=== PATIENT | male | born 1935 | race Caucasian/White ===

== ENCOUNTER 2019-05-02 18:45 | Emergency (ER) | payer OTHER ==
[~2019-05-02] VITALS: Ht 170.2 cm; Wt 72.6 kg
[2019-05-02] MEDS ORDERED: LOPRESSOR50 MG PO (19:00)
[2019-05-02] MEDS ORDERED: ASPIR 8181 M1 PO (19:01)
[2019-05-02] MEDS ORDERED: ACETAMINOPHEN500 MG PO (19:02)
[2019-05-02 21:57] LABS: URINE BILIRUBIN NEGATIVE (Negative); URINE BLOOD 3+ (Negative); URINE CLARITY SL CLOUDY; URINE COLOR YELLOW; URINE GLUCOSE-RANDOM* NEGATIVE (Negative); URINE KETONES NEGATIVE (Negative); URINE LEUKOCYTES-REFLEX 3+ (Negative); URINE NITRITE-REFLEX NEGATIVE (Negative); URINE PROTEIN (DIPSTICK) 2+ (Negative); URINE UROBILINOGEN 0.2 E.U./dl (0.2-1.0)
[2019-05-02 22:11] LABS: CASTS None Seen /LPF (None Seen); CRYSTALS None Seen /LPF (None Seen); SQUAMOUS 0-3 Few /LPF (0-3); URINE RBC 0-2 Rare /HPF (0-2); URINE WBC-REFLEX >25 Many /HPF (0-5)
[2019-05-02] MEDS ORDERED: KEFLEX500 M1 PO (22:32)
[2019-05-02] MEDS ORDERED: ULTRAM 50MG TAB50 MG PO (22:32)
[2019-05-02 22:40] VITALS: BP 137/82
--- NOTE | 2019-05-03 08:00 | EKG ---
[address] [place] [address] ELECTROCARDIOGRAM REPORT Name: NONA HAM Room #: [facility] Sahra#: [id number] Admission: 05/02/19 Attend Phys: Discharge: 05/02/19 Date of : 33 Report #: [id number] THIS REPORT FOR: //name// [facility] ED Test Date: 2019-05-02 Test Time: 19:00:35 Pat Name: NONA HAM Department: Room: Gender: Family Medicine Physician: JONE : 1935 Requested By: Deanna Crawley Order Number: [id number] MD: Nikita Oneill Measurements Intervals [place] Rate: 132 P: SC: QRS: 3 QRSD: 98 T: 139 QT: 312 QTc: 463 Interpretive Statements Atrial fibrillation Probable LVH with secondary repol abnrm Baseline wander in lead(s) I,II,III,aVR,aVF No previous ECG available for comparison Electronically Signed On 05-03-2019 8:00:12 CULINARY ART TEACHER by Nikita Oneill [email or web address] <ELECTRONICALLY SIGNED> By: Nikita Oneill MD 05/03/19 0800 99 99 Nikita Oneill MD /REYNALDO
== END 2019-05-02 22:54 | disposition home or self-care (01) ==
LOC: ER 18:45
PROVIDERS: Emergency Medicine
DX: S82.65XA Nondisplaced fracture of lateral malleolus of left fibula, initial encounter for closed fracture (principal); N39.0 Urinary tract infection, site not specified; I10 Essential (primary) hypertension; W01.0XXA Fall on same level from slipping, tripping and stumbling without subsequent striking against object, initial encounter; Y93.89 Activity, other specified; Y92.89 Other specified places as the place of occurrence of the external cause; Y99.8 Other external cause status

== ENCOUNTER → 2021-02-11 | Outpatient (CLI) | payer OTHER ==
[~2021-02-11] MED LIST: ACETAMINOPHEN500 MG PO; ASPIR 8181 M1 PO; KEFLEX500 M1 PO; LOPRESSOR50 MG PO; ULTRAM 50MG TAB50 MG PO
== END ==
LOC: SJCVC 13:53
PROVIDERS: ATTEND Internal Medicine Cardiovascular Disease
DX: R94.31 Abnormal electrocardiogram [ECG] [EKG] (principal); I49.3 Ventricular premature depolarization; I48.19 Other persistent atrial fibrillation; I25.10 Atherosclerotic heart disease of native coronary artery without angina pectoris; I73.9 Peripheral vascular disease, unspecified; I13.10 Hypertensive heart and chronic kidney disease without heart failure, with stage 1 through stage 4 chronic kidney disease, or unspecified chronic kidney disease; N18.9 Chronic kidney disease, unspecified; I47.1 Supraventricular tachycardia; E78.5 Hyperlipidemia, unspecified; Z79.82 Long term (current) use of aspirin; Z79.899 Other long term (current) drug therapy; Z72.89 Other problems related to lifestyle; Z87.891 Personal history of nicotine dependence

== ENCOUNTER → 2021-03-03 | Outpatient (CLI) | payer OTHER ==
[~2021-03-03] VITALS: Ht 170.2 cm; Wt 76.4 kg
[~2021-03-03] MED LIST changes: +ALLOPURINOL 30300 M1 PO; +CHOLESTOFF COM1 EACH PO; +FLORASTOR250 MG PO; +FUROSEMIDE 20 M20 MG PO; +LUTEIN-ZEAXANT1 EACH PO; +VITAMIN C500 M2 PO; +VITAMIN D325 MC2 PO; +XARELTO15 MG PO; +[UNRECOGNIZED DRUG - OTHER]; +[UNRECOGNIZED DRUG - OTHER]; +[UNRECOGNIZED DRUG - OTHER]; +[UNRECOGNIZED DRUG - OTHER]; +[UNRECOGNIZED DRUG - REMARK]
[2021-03-03 07:41] VITALS: BP 166/93
[2021-03-03 08:02] LABS: CALCIUM 9.4 mg/dL (8.5-10.1); POTASSIUM 4.2 mmol/L (3.5-5.1)
--- NOTE | 2021-03-03 08:52 | TEE ---
[facility] [place] [address] TRANSESOPHAGEAL ECHOCARDIOGRAM Name: NONA HAM Room #: REG [facility]#: [id number] Admission: 03/03/21 Attend Phys: Gabriel Tejeda MD, Discharge: Date of : 33 Report #: [id number] THIS REPORT FOR: cc: Dory Eric MD, J. Christopher MD Santiago, Patrick MD [facility] ~ APPROVED REPORT Study performed: 03/03/2021 08:05:19 EXAM: Comprehensive 2D, Doppler, and color-flow Echocardiogram Patient Location: Out-Patient Room #: 9 Status: routine BSA: 1.88 HR: 85 bpm BP: 154/92 mmHg Rhythm: Atrial Fibrillation Other Information Study Quality: Good Indications Atrial Fibrillation Echo Enhancing Agent Indication: Rule out Shunt Agent(s) / Amount(s) Used: Agitated Saline 7 cc Procedure After obtaining informed consent, patient underwent transesophageal echo in the [employer]. Type of Sedation : Conscious Sedation Sedation was administered by Nurse. Sedation start time: 809 Case end Time: 824 Sedation was achieved intravenously with: Versed (4mg) Fentanyl (50mcg) Transesophageal probe was inserted and advanced into esophagus without difficulty by Gabriel Tejeda MD. Echo enhancement indication: R/O Septal defect. Echo enhancement agent administered: Agitated Saline The NAYAN was performed without complications. Synchronized Cardioversion acheived with 150 Joules after [address] [facility] [address] [place] [address] TRANSESOPHAGEAL ECHOCARDIOGRAM Name: NONA HAM Room #: REG [facility]#: [id number] Admission: 03/03/21 Attend Phys: Gabriel Tejeda, Discharge: Date of : 33 Report #: [id number] attempt(s). Rhythm following Synchronized Cardioversion: Sinus Bradycardia Throughout the procedure, the blood pressure, pulse oximetry, cardiac rhythm, and rate were monitored. The patient tolerated the procedure without adverse effects. Recovery from conscious sedation was uneventful and vital signs were stable. Left Ventricle The left ventricle is normal size. There is normal LV segmental wall motion. There is normal left ventricular wall thickness. The left ventricular systolic function is normal. The left ventricular ejection fraction is within the normal range. LVEF is >55%. Right Ventricle The right ventricle is normal size. The right ventricular systolic function is normal. Atria Left atrium is dilated. No thrombus is visualized in the left atrium or appendage. Watchman device note in the left atrial appendage Injection of contrast documented no interatrial shunt. Right atrium is dilated. Aortic Valve The aortic valve is normal in structure. No aortic regurgitation is present. There is no aortic valvular stenosis. Mitral Valve The mitral valve is normal in structure. Moderate mitral regurgitation. No evidence of mitral valve stenosis. Tricuspid Valve The tricuspid valve is normal in structure. Mild tricuspid regurgitation. Pulmonic Valve The pulmonary valve is normal in structure. There is no pulmonic valvular regurgitation. Great Vessels The aortic root is normal in size. Pericardium There is no pericardial effusion. [facility] [address] [place] [address] TRANSESOPHAGEAL ECHOCARDIOGRAM Name: NONA HAM [id number] Admission: 03/03/21 Attend Phys: Gabriel Tejeda, Discharge: Date of : 34 Report #: [id number] <Conclusion> Consent was obtained Timeout was performed Normal left ventricle size/wall thickness, EF 55% Normal right ventricle size/function Moderate biatrial enlargement Left radial appendage not visualized, history of a watchman device placement No obvious mass or clot detected Trileaflet aortic valve, normal function Moderate/central mitral valve insufficiency Mild-Moderate tricuspid valve insufficiency Pulmonary valve; no evidence of insufficiency detected No pericardial effusion Normal aortic root size Aorta minimal calcification No evidence of ASD/VSD by color flow/bubble study Patient was successfully cardioverted to sinus bradycardia/150 J biphasic mode Patient tolerated the procedure well In view of the bradycardia post cardioversion in the high 40s bpm, metoprolol was Decreased from 100 mg p.o. twice daily to 50 mg p.o. twice daily Twelve-lead ECG pending <ELECTRONICALLY SIGNED> By: Gabriel Tejeda MD, [facility] 03/03/21 0851 0851 08 Gabriel Tejeda MD, FACC /INF
--- NOTE | 2021-03-04 07:15 | EKG ---
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 : 1935 Requested By: Gabriel Tejeda Order Number: [id number] MD: Gabriel Tejeda Measurements Intervals [place] Rate: 57 P: 68 IN: 209 QRS: 9 QRSD: 119 T: 46 QT: 473 QTc: 461 Interpretive Statements Sinus rhythm Nonspecific intraventricular conduction delay Borderline ST depression, anterolateral leads Compared to ECG 05/02/2019 19:00:35 Intraventricular conduction delay now present ST (T wave) deviation now present Atrial fibrillation no longer present Electronically Signed On 03-04-2021 7:15:32 ANALYTICAL SCIENCES DIRECTOR by Gabriel Tejeda [email or web address] <ELECTRONICALLY SIGNED> By: Gabriel Tejeda MD, [facility] 03/04/21 0715 0850 0850 Gabriel Tejeda MD, [facility] /EPI
== END | disposition home or self-care (01) ==
LOC: CATH 06:35
PROVIDERS: ATTEND Internal Medicine
DX: I48.91 Unspecified atrial fibrillation (principal); I08.1 Rheumatic disorders of both mitral and tricuspid valves; I12.9 Hypertensive chronic kidney disease with stage 1 through stage 4 chronic kidney disease, or unspecified chronic kidney disease; N18.9 Chronic kidney disease, unspecified; E78.5 Hyperlipidemia, unspecified; I73.9 Peripheral vascular disease, unspecified; K21.9 Gastro-esophageal reflux disease without esophagitis; M10.9 Gout, unspecified; N40.0 Benign prostatic hyperplasia without lower urinary tract symptoms; Z98.890 Other specified postprocedural states; Z79.899 Other long term (current) drug therapy; Z95.1 Presence of aortocoronary bypass graft; Z79.01 Long term (current) use of anticoagulants

== ENCOUNTER → 2021-03-12 | Outpatient (CLI) | payer OTHER | LOC: SJCVC 13:02 | PROVIDERS: ATTEND Internal Medicine Cardiovascular Disease | DX: R94.31 Abnormal electrocardiogram [ECG] [EKG] (principal); I44.0 Atrioventricular block, first degree; I48.19 Other persistent atrial fibrillation; I49.5 Sick sinus syndrome; E78.5 Hyperlipidemia, unspecified; I12.9 Hypertensive chronic kidney disease with stage 1 through stage 4 chronic kidney disease, or unspecified chronic kidney disease; N18.9 Chronic kidney disease, unspecified; Z88.8 Allergy status to other drugs, medicaments and biological substances; Z79.82 Long term (current) use of aspirin; Z79.899 Other long term (current) drug therapy; Z72.89 Other problems related to lifestyle; Z87.891 Personal history of nicotine dependence ==

== ENCOUNTER → 2021-04-02 | Outpatient (CLI) | payer OTHER | LOC: SJCVCIMAG 08:17 | PROVIDERS: ATTEND Internal Medicine Cardiovascular Disease | DX: R94.31 Abnormal electrocardiogram [ECG] [EKG] (principal); I25.10 Atherosclerotic heart disease of native coronary artery without angina pectoris; N18.9 Chronic kidney disease, unspecified ==

== ENCOUNTER → 2021-05-06 | Outpatient (CLI) | payer OTHER | LOC: SJCVC 14:19 | PROVIDERS: ATTEND Internal Medicine Cardiovascular Disease | DX: I49.1 Atrial premature depolarization (principal); R94.31 Abnormal electrocardiogram [ECG] [EKG]; I49.3 Ventricular premature depolarization; I49.5 Sick sinus syndrome; I48.19 Other persistent atrial fibrillation; I13.10 Hypertensive heart and chronic kidney disease without heart failure, with stage 1 through stage 4 chronic kidney disease, or unspecified chronic kidney disease; N18.9 Chronic kidney disease, unspecified; E78.5 Hyperlipidemia, unspecified; I73.9 Peripheral vascular disease, unspecified; Z87.891 Personal history of nicotine dependence; Z72.89 Other problems related to lifestyle; Z79.82 Long term (current) use of aspirin; Z79.899 Other long term (current) drug therapy; Z88.5 Allergy status to narcotic agent ==

== ENCOUNTER 2021-05-23 09:31 | Observation (INO) | payer OTHER ==
[~2021-05-23] VITALS: Ht 170.2 cm; Wt 74.4 kg
[2021-05-23 10:11] LABS: ABSOLUTE NEUTROPHILS 2.5 thou/uL (1.4-8.2); BASOPHILS 0.8 % (0.0-2.0); EOSINOPHILS 1.7 % (0.0-3.0); HEMATOCRIT 38.5 % (42.0-52.0); HEMOGLOBIN 12.9 gm/dL (14.0-18.0); LYMPHOCYTES 31.6 % (24.0-44.0); MCH 35.7 pg (26.0-34.0); MCHC 33.6 g/dL (28.0-37.0); MCV 106.3 fL (80.0-100.0); PLATELET COUNT 148 thou/uL (150-400); POLYS 59.9 % (36.0-66.0); RBC 3.62 mil/uL (4.50-6.00); RDW 14.2 % (10.5-14.5); WBC 4.2 thou/uL (4.0-11.0)
[2021-05-23 10:23] VITALS: BP 112/85
[2021-05-23 10:24] LABS: CREATININE 2.1 mg/dL (0.7-1.3); POTASSIUM 3.8 mmol/L (3.5-5.1)
[2021-05-23 10:25] LABS: APTT 30.2 Seconds (24.5-32.8); INR 0.96; PROTIME 10.5 Seconds (10.5-12.1)
[2021-05-23 10:27] LABS: ALBUMIN 3.6 g/dL (3.4-5.0); TOTAL BILIRUBIN 0.7 mg/dL (0.2-1.0); TOTAL PROTEIN 7.9 g/dL (6.4-8.2)
[2021-05-23] MEDS ORDERED: PROLIA60 MG/1 ML SUBQ (10:50)
[2021-05-23] MEDS ORDERED: BYSTOLIC10 MG PO (10:50)
[2021-05-23 15:00] VITALS: BP 164/72
[2021-05-23 19:37] VITALS: BP 157/70
[2021-05-24 03:12] VITALS: BP 151/61
[2021-05-24 07:22] VITALS: BP 151/61
[2021-05-24 08:05] VITALS: BP 167/64
--- NOTE | 2021-05-24 10:14 | NUR ---
took over care of this patient at 0700. pt resting in bed comfortably at this time. denies pain. 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 shoulder immobilizer in place. pt on room air, denies SOA. will continue to monitor. assessments as charted and VSS. fall precautions in place. awaiting dc orders from on-call cardiology provider.
[2021-05-24 11:40] VITALS: BP 167/63
--- NOTE | 2021-05-24 12:24 | NUR ---
DISCHARGE INSTRUCTIONS GIVEN TO PATIENT. CALLED REGARDING PATIENTS STATUS AND DISCHARGE; DC INSTRUCTIONS GIVEN TO WELL. ALL BELONGINGS GIVEN TO PATIENT.
--- NOTE | 2021-05-30 14:50 | P ---
[facility] [place] [address] PROCEDURE REPORT Name: NONA HAM Room #: 207-P [facility] Re Bocanegra#: [id number] Admission: 05/23/21 Attend Phys: Nikita Oneill MD Discharge: 05/24/21 Date of : 34 Report #: [id number] THIS REPORT FOR: cc: Dory Eric MD, J. Christopher MD Couchonnal,Nikita Rosen MD ~ DATE OF SERVICE: 05/23/2021 DUAL CHAMBER PACEMAKER IMPLANTATION HISTORY: The patient is an 85-year-old male with history of coronary artery disease status post CABG, atrial fibrillation, status post Watchman procedure, who has recently been experiencing increased fatigue and exertional dyspnea with evidence of sick sinus syndrome on recent issuer as well as frequent PVCs. He is here for a dual chamber pacemaker implantation for sick sinus syndrome, and need for increased medications for his symptomatic PVCs. ANESTHESIA: The patient underwent MAC anesthesia with no anesthesia related complications. DESCRIPTION OF PROCEDURE: The patient was brought to the EP laboratory in a fasting and sedated state, prepped and draped in standard fashion, receiving IV antibiotics prior to initiation of the procedure and undergoing a venogram showing patency of the left axillary vein. Next, I injected lidocaine below the level of left clavicle. Incision was made, pocket was created over the prepectoral fascia, and I attempted to obtain access to the left axillary vein. Access was somewhat challenging and therefore, a repeat venogram was performed. I then was able to obtain access to left axillary vein x 2, but I had to use too long Wholey wires given the tortuosity in the subclavian vessel, which had several 90-degree turns, making advancing the wire somewhat challenging. Sheaths were positioned using the modified Seldinger technique. Leads were positioned in the right ventricle and right atrial appendage, both with adequate pacing and sensing of thresholds. Leads were sutured to prepectoral fascia. The leads were connected to the device. Tug test performed. Pocket was irrigated with vancomycin. Pocket closed in 2 layers and surgical glue was placed to outer skin layer. There were no procedure related complications and no significant bleeding. The implanted pacemaker was a [employer] model number W3DR01, serial number [id number]. The atrial lead was a 5076, 52 cm, serial number [id number]. The RV lead was a 5076, 58 cm, serial number [id number]. Atrial lead demonstrated P-wave of 1.5 millivolts, pacing impedance 456 ohms, pacing threshold 0.75 volts at 0.4 milliseconds. RV lead demonstrated R waves of 7.1 millivolts, pacing impedance of 551 ohms, pacing threshold 0.5 volts at 0.4 milliseconds. The device was programmed to AAIR/DDDR 70-130 mode. CONCLUSION: [facility] [address] [place] [address] PROCEDURE REPORT Name: NONA HAM Room #: 207-P [facility] Re Bocanegra#: [id number] Admission: 05/23/21 Attend Phys: Nikita Oneill MD Discharge: 05/24/21 Date of : 33 Report #: [id number] 1. Successful dual chamber pacemaker implantation. 2. Satisfactory atrial and ventricular pacing and sensing thresholds. <ELECTRONICALLY SIGNED> By: Nikita Oneill MD 05/30/21 1450 1322 2220 Nikita Oneill MD /nt
== END 2021-05-24 13:29 | disposition home or self-care (01) ==
LOC: CATH 09:31 → 2N 09:51 → CATH 10:27 → 2N 05-24 13:29
PROVIDERS: ADMIT Internal Medicine Cardiovascular Disease; ATTEND Internal Medicine Cardiovascular Disease
DX: I49.5 Sick sinus syndrome (principal); Z20.822 Contact with and (suspected) exposure to COVID-19; I25.10 Atherosclerotic heart disease of native coronary artery without angina pectoris; I48.21 Permanent atrial fibrillation; I12.9 Hypertensive chronic kidney disease with stage 1 through stage 4 chronic kidney disease, or unspecified chronic kidney disease; N18.9 Chronic kidney disease, unspecified; M10.9 Gout, unspecified; E78.5 Hyperlipidemia, unspecified; N20.0 Calculus of kidney; N40.0 Benign prostatic hyperplasia without lower urinary tract symptoms; Z95.1 Presence of aortocoronary bypass graft; Z79.82 Long term (current) use of aspirin; Z79.899 Other long term (current) drug therapy
CPT/HCPCS: 62110; 62900; 70005